=== PATIENT | female | born 1990 | race Hispanic/Latino ===

== ENCOUNTER 2021-03-05 08:08 | Emergency (ER) | payer SELFPAY ==
--- NOTE | 2021-03-05 08:46 | RAD REPORT ---
EXAM DESCRIPTION: CT - Stone Protocol - 03/05/2021 8:35 am CLINICAL HISTORY: Abdominal pain. Left flank COMPARISON: None. TECHNIQUE: Computed axial tomography of the abdomen pelvis was obtained without oral or IV contrast. Lack of IV and oral contrast limits evaluation of solid organs, bowel, and vessels. Coronal reformat nikunj images were obtained and reviewed. All CT scans are performed using dose optimization technique as appropriate and may include automated exposure control or mA/KV adjustment according to patient size. FINDINGS: A renal calculus is not seen. An ureteral calculus is not noted. A bladder calculus is not present. The liver, spleen, pancreas and adrenals appear grossly normal There is no evidence of diverticulitis. The appendix appears normal. No adnexal mass IMPRESSION: Negative for a genitourinary calculus
[2021-03-05 08:52] LABS: Absolute Lymphocytes (CBC) 1.6 K/uL (0.7-4.9); Basophils % 0.5 % (0-1.3); Hematocrit 37.9 % (36.0-45.0); MPV 7.9 fL (7.6-11.3); RBC Red Blood Cell Count 4.32 M/uL (3.86-4.86)
[2021-03-05 08:55] LABS: BUN Blood Urea Nitrogen 10 mg/dL (7-18); Bicarbonate 26 mmol/L (21-32); Glucose Level 96 mg/dL (74-106); Potassium 3.8 mmol/L (3.5-5.1); Sodium Level 140 mmol/L (136-145)
[2021-03-05] MEDS ORDERED: NA CHLORIDE 0.9% 500 ML ONE (09:18)
[2021-03-05 10:39] LABS: Urine Blood 3+ (Negative); Urine Glucose Negative (Negative); Urine Protein 2+ (Negative); Urine Specific Gravity 1.025 (1.005-1.030); Urine pH 7.5 (5.0-7.0)
--- NOTE | 2021-03-05 10:39 | EDPHYS ---
Physician Documentation [facility] Name: Carolynn Hills Age: 30 yrs Sex: Female : 1990 Arrival Date: 03/05/2021 Time: 08:10 Bed 19 Private MD: ED Physician Bharath Mclaughlin HPI: 03/05 08:44 This 30 yrs old Female presents to ER via Ambulatory with complaints of Back rn Pain. 08:44 The patient presents with pain that is acute. The symptoms are located in the low back. rn Onset: The symptoms/episode began/occurred 5 day(s) ago. The pain radiates to the abdomen. Associated signs and symptoms: Pertinent positives: dysuria, hematuria, Pertinent negatives: incontinence, urinary retention, vomiting, weakness. Modifying factors: The patient symptoms are alleviated by nothing, the patient symptoms are aggravated by any movement. Severity of symptoms: At their worst the symptoms were mild, in the emergency department the symptoms are unchanged. The patient has experienced a previous episode. The patient has been recently seen by a physician:. Reports about 5-6 days of low back pain, radiates to front of abdomen/left side, assoc with dysuria and possibly hematuria, seen by clinic recently and has not gotten UA results. NO fever. No hx of kidney stones. . 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 - Social history:: Smoking status: Patient reports the use of cigarette tobacco products, denies chronic smoking, but will smoke occasionally. - Family history:: not pertinent. - Hospitalizations: : No recent hospitalization is reported. ROS: 08:44 Constitutional: Negative for fever, chills, and weight loss, Eyes: Negative for injury, rn pain, redness, and discharge, Neck: Negative for injury, pain, and swelling, Cardiovascular: Negative for chest pain, palpitations, and edema, Respiratory: Negative for shortness of breath, cough, wheezing, and pleuritic chest pain, Abdomen/GI: Negative for nausea, vomiting, diarrhea, and constipation, Back: + low back pain : + dysuria MS/Extremity: Negative for injury and deformity, Skin: Negative for injury, rash, and discoloration, Neuro: Negative for headache, weakness, numbness, tingling, and seizure. Exam: 08:44 Constitutional: This is a well developed, well nourished patient who is awake, alert, rn crying Head/Face: Normocephalic, atraumatic. Eyes: Periorbital areas with no swelling, redness, or edema. Cardiovascular: Regular rate and rhythm. No pulse deficits. Respiratory: No increased work of breathing, no retractions or nasal flaring. Abdomen/GI: soft, mild tenderness LLQ and suprapubic Back: No spinal tenderness. No costovertebral tenderness. Full range of motion. Skin: Warm, dry MS/ Extremity: Pulses equal, no cyanosis. Neuro: Awake and alert, GCS 15, oriented to person, place, time, and situation. Vital Signs: 08:16 BP 148 / 103; Pulse 97; Resp 20; Pulse Ox 97% ; Height 5 ft. 8 in. (172.72 cm); Pain sv 5/10; 08:18 Temp 98.4(O); jd3 09:01 BP 135 / 94; Pulse 77; Resp 17 S; Pulse Ox 98% on R/A; jd3 11:16 BP 120 / 89; Pulse 67; Resp 17 S; Pulse Ox 99% on R/A; jd3 12:00 Pulse 70; Resp 16 S; Pulse Ox 100% on R/A; jd3 MDM: 08:16 Patient medically screened. rn 10:38 Differential diagnosis: UTI, kidney stone. Data reviewed: vital signs, nurses notes, rn operating room test result(s), radiologic studies, CT scan, and as a result, I will discharge patient. Counseling: I had a detailed discussion with the patient and/or guardian regarding: the historical points, exam findings, and any diagnostic results supporting the discharge/admit diagnosis, lab results, radiology results, the need for outpatient follow up, to return to the emergency department if symptoms worsen or persist or if there are any questions or concerns that arise at home. Response to treatment: the patient's symptoms have mildly improved after treatment, and as a result, I will discharge patient. Special discussion: I discussed with the patient/guardian in detail that at this point there is no indication for admission to the hospital. It is understood, however, that if the symptoms persist or worsen the patient needs to return immediately for re-evaluation. 03/05 08:21 Order name: CBC with Diff; Complete Time: 08:57 rn 03/05 08:21 Order name: Basic Metabolic Panel; Complete Time: 08:57 rn 03/05 08:21 Order name: Urine Culture rn 03/05 08:21 Order name: Urine Microscopic Only rn 03/05 10:38 Order name: Urine --Ancillary (enter results) em1 03/05 10:38 Order name: Urine Dipstick-Ancillary EDND 03/05 08:21 Order name: IV Start; Complete Time: 08:50 rn 03/05 08:21 Order name: Urine Test (obtain specimen); Complete Time: 10:37 rn 03/05 08:21 Order name: Urine Dipstick-Ancillary (obtain specimen); Complete Time: 10:37 rn 03/05 08:21 Order name: CT Stone Protocol; Complete Time: 08:53 rn Administered Medications: 09:01 Drug: NS 0.9% 500 ml Route: IV; Rate: bolus; Site: right antecubital; jd3 10:00 Follow up: Response: No adverse reaction; IV Status: Completed infusion; IV Intake: jd3 500ml 10:47 Drug: Cipro (ciprofloxacin) 400 mg Volume: 200 ml; Route: IVPB; Infused Over: 60 mins; jd3 Site: right antecubital; 11:45 Follow up: Response: No adverse reaction; IV Status: Completed infusion jd3 10:47 Drug: TORadol (ketorolac) 30 mg Route: IVP; Site: right antecubital; jd3 11:40 Follow up: Response: No adverse reaction jd3 Disposition: 03/05/21 10:38 Discharged to Home. Impression: Urinary tract infection, site not specified. - Condition is Stable. - Discharge Instructions: Dysuria, Urinary Tract Infection, Adult. - Prescriptions for Cipro 500 mg Oral Tablet - take 1 tablet by ORAL route every 12 hours for 7 days; 14 tablet. - Medication Reconciliation Form, Thank You Letter, Antibiotic Education, Prescription Opioid Use form. - Follow up: Private Physician; When: As needed; Reason: Recheck today's complaints, Re-evaluation by your physician. - Problem is new. - Symptoms have improved. Signatures: Dispatcher [employer] EDSamaria Santacruz RN RN sv Nieto, Roman, MD MD rn Davies, Jonathon, RN RN jd3 Corrections: (The following items were deleted from the chart) 12:07 10:38 03/05/2021 10:38 Discharged to Home. Impression: Urinary tract infection, site jd3 not specified. Condition is Stable. Discharge Instructions: Dysuria, Urinary Tract Infection, Adult. Prescriptions for Cipro 500 mg Oral Tablet - take 1 tablet by ORAL route every 12 hours for 7 days; 14 tablet. and Forms are Medication Reconciliation Form, Thank You Letter, Antibiotic Education, Prescription Opioid Use. Follow up: Private Physician; When: As needed; Reason: Recheck today's complaints, Re-evaluation by your physician. Problem is new. Symptoms have improved. rn
--- NOTE | 2021-03-05 10:39 | ER ---
Nurse's Notes [facility] Name: Carolynn Hills Age: 30 yrs Sex: Female : 1990 Arrival Date: 03/05/2021 Time: 08:10 Bed 19 Private MD: Diagnosis: Urinary tract infection, site not specified Presentation: 03/05 08:16 Chief complaint: Patient states: left low back pain/spasms that radiates to the left sv flank and LLQ since Friday. Reports bleeding but could be tissue being expelled. Reports having a UTI last month, put on abx and it went away. Coronavirus screen: Client denies travel out of the [place] in the last 14 days. At this time, the client does not indicate any symptoms associated with coronavirus-19. Ebola Screen: No symptoms or risks identified at this time. Initial Sepsis Screen: Does the patient meet any 2 criteria? HR > 90 bpm. No. Patient's initial sepsis screen is negative. Does the patient have a suspected source of infection? No. Patient's initial sepsis screen is negative. Risk Assessment: Do you want to hurt yourself or someone else? Patient reports no desire to harm self or others. Onset of symptoms was February 26, 2021. 08:16 Method Of Arrival: Ambulatory sv 08:16 Acuity: LITZY 2 sv Triage Assessment: 08:19 General: Appears in no apparent distress. uncomfortable, Behavior is cooperative, sv crying. Pain: Complains of pain in left low back Pain radiates to posterior aspect of left lateral abdomen, anterior aspect of left lateral abdomen and left lower quadrant Pain at worst was 5 out of 10 on a pain scale. Neuro: Level of Consciousness is awake, alert, obeys commands, Gait is steady. Respiratory: Respiratory effort is even, unlabored. 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 - Social history:: Smoking status: Patient reports the use of cigarette tobacco products, denies chronic smoking, but will smoke occasionally. - Family history:: not pertinent. - Hospitalizations: : No recent hospitalization is reported. Screenin:03 Abuse screen: Denies threats or abuse. Nutritional screening: No deficits noted. jd3 Tuberculosis screening: No symptoms or risk factors identified. Fall Risk Ambulatory Aid- None/Bed Rest/Nurse Assist (0 pts). Gait- Normal/Bed Rest/Wheelchair (0 pts) Mental Status- Oriented to own ability (0 pts). Total Medina Fall Scale indicates No Risk (0-24 pts). Assessment: 08:15 General: Appears in no apparent distress. uncomfortable, Behavior is calm, cooperative, jd3 appropriate for age. Pain: Complains of pain in low back area Quality of pain is described as sharp. Neuro: Level of Consciousness is awake, alert, obeys commands, Oriented to person, place, time, situation. Cardiovascular: Capillary refill < 3 seconds Patient's skin is warm and dry. Respiratory: Airway is patent Respiratory effort is even, unlabored, Respiratory pattern is regular, symmetrical, Denies cough, shortness of breath. GI: No signs and/or symptoms were reported involving the gastrointestinal system. : Reports burning with urination, urgency. EENT: No signs and/or symptoms were reported regarding the EENT system. Derm: Skin is intact, Skin is dry, Skin is normal, Skin temperature is warm. Musculoskeletal: Circulation, motion, and sensation intact. Range of motion: intact in all extremities. 09:01 Reassessment: Patient appears in no apparent distress at this time. No changes from jd3 previously documented assessment. Patient and/or family updated on plan of care and expected duration. Pain level reassessed. Patient is alert, oriented x 3, equal unlabored respirations, skin warm/dry/pink. 10:10 Reassessment: Patient appears in no apparent distress at this time. No changes from jd3 previously documented assessment. Patient and/or family updated on plan of care and expected duration. Pain level reassessed. Patient is alert, oriented x 3, equal unlabored respirations, skin warm/dry/pink. 11:15 Reassessment: Patient appears in no apparent distress at this time. Patient and/or jd3 family updated on plan of care and expected duration. Pain level reassessed. Patient is alert, oriented x 3, equal unlabored respirations, skin warm/dry/pink. awaiting IV antibiotic infusion prior to discharge. Patient states feeling better. 12:06 Reassessment: Patient appears in no apparent distress at this time. Patient and/or jd3 family updated on plan of care and expected duration. Pain level reassessed. Patient is alert, oriented x 3, equal unlabored respirations, skin warm/dry/pink. Patient states feeling better. Vital Signs: 08:16 BP 148 / 103; Pulse 97; Resp 20; Pulse Ox 97% ; Height 5 ft. 8 in. (172.72 cm); Pain sv 5/10; 08:18 Temp 98.4(O); jd3 09:01 BP 135 / 94; Pulse 77; Resp 17 S; Pulse Ox 98% on R/A; jd3 11:16 BP 120 / 89; Pulse 67; Resp 17 S; Pulse Ox 99% on R/A; jd3 12:00 Pulse 70; Resp 16 S; Pulse Ox 100% on R/A; jd3 ED Course: 08:10 Patient arrived in ED. ds1 08:16 Bharath Mclaughlin MD is Attending Physician. rn 08:18 Colten Kaur RN is Primary Nurse. jd3 08:19 Triage completed. sv 08:19 Arm band placed on. sv 08:30 Inserted saline lock: 20 gauge in right antecubital area, using aseptic technique. jd3 Blood collected. 08:35 CT Stone Protocol In Process Unspecified. EDMS 09:03 Patient has correct armband on for positive identification. Placed in gown. Bed in low jd3 position. Call light in reach. Side rails up X 1. Adult w/ patient. Pulse ox on. NIBP on. 12:03 No provider procedures requiring assistance completed. IV discontinued, intact, jd3 bleeding controlled, No redness/swelling at site. Pressure dressing applied. Administered Medications: 09:01 Drug: NS 0.9% 500 ml Route: IV; Rate: bolus; Site: right antecubital; jd3 10:00 Follow up: Response: No adverse reaction; IV Status: Completed infusion; IV Intake: jd3 500ml 10:47 Drug: Cipro (ciprofloxacin) 400 mg Volume: 200 ml; Route: IVPB; Infused Over: 60 mins; jd3 Site: right antecubital; 11:45 Follow up: Response: No adverse reaction; IV Status: Completed infusion jd3 10:47 Drug: TORadol (ketorolac) 30 mg Route: IVP; Site: right antecubital; jd3 11:40 Follow up: Response: No adverse reaction jd3 Intake: 10:00 IV: 500ml; Total: 500ml. jd3 Outcome: 10:38 Discharge ordered by . rn 12:03 Discharged to home ambulatory, with family. jd3 12:03 Condition: stable 12:03 Discharge instructions given to patient, family, Instructed on discharge instructions, follow up and referral plans. medication usage, Demonstrated understanding of instructions, follow-up care, medications, Prescriptions given X 1. 12:07 Patient left the ED. jd3 Addendum: 03/08/2021 09:10 Addendum: Culture Results: Positive urine culture. No further action required. Bacteria s s sensitive to prescribed antibiotic. Signatures: Dispatcher [employer] EDSamaria Santacruz, RN RN Gaby Huffman ds1 Bharath Mclaughlin MD MD rn Smirch, Shelby, RN RN ss Davies, Jonathon, RN RN jd3
[2021-03-05 10:52] LABS: Urine Bacteria LOADED /HPF (<20); Urine RBC 20-50 /HPF (NONE SEEN)
[2021-03-05 10:53] LABS: Urine Specific Gravity/Preg 1.025 (1.005-1.030)
[2021-03-05] MEDS ORDERED: KETOROLAC 30 MG/ML INJ ONE (11:00)
[2021-03-05] MEDS ORDERED: CIPROFLOXACIN 400mg IV 400 MG/200 ML BAG IV ONE (11:00)
[2021-03-05 12:14] VITALS: TEMP 98.4
[2021-03-05 12:17] VITALS: BP 120/89
[2021-03-05 12:19] VITALS: O2SAT 100
== END 2021-03-05 12:07 | disposition home or self-care (01) ==
LOC: ER 08:08
DX: N39.0 Urinary tract infection, site not specified (principal); F17.210 Nicotine dependence, cigarettes, uncomplicated
CPT/HCPCS: 36415; 74176; 76377; 80048; 81003; 81015; 81025; 85025; 87077; 87086; 87088; 87186; 96361; 96365; 96375; 99284; J0744; J7040